=== PATIENT | male | born 1995 | race Caucasian/White ===

== ENCOUNTER 2023-03-10 12:37 | Emergency (ER) | payer MEDICAID, OTHER ==
[~2023-03-10] VITALS: Ht 170.2 cm; Wt 66.4 kg
[2023-03-10] MEDS ORDERED: LORazepam 0.5 MG TAB PO ONE (13:15)
[2023-03-10] MEDS ORDERED: ONDANSETRON ODT 4 MG TAB PO ONE (13:15)
[2023-03-10 13:32] LABS: Basophils # (auto) 0 10 ^3/uL (0-0.2); Basophils % (auto) 0.4 % (0.0-2.0); Eosinophils # (auto) 0 10 ^3/uL (0-0.8); Eosinophils % (auto) 0.4 % (0.0-7.0); Hematocrit 47.2 % (41.0-53.0); Hemoglobin 16.6 g/dL (13.5-17.5); Lymphocytes # (auto) 0.6 10 ^3/uL (0.4-5.4); Lymphocytes % (auto) 5.3 % (10.0-50.0); Mean Corpuscular Hgb Conc. 35.1 g/dL (32.0-36.0); Mean Corpuscular Volume 88.3 fL (80.0-100.0); Monocytes # (auto) 0.5 10 ^3/uL (0-1.3); Monocytes % (auto) 4.1 % (0.0-12.0); Neutrophils # (auto) 9.9 10 ^3/uL (1.6-8.6); Neutrophils % (auto) 89.8 % (37.0-80.0); Red Blood Cells 5.35 10^6/uL (4.5-5.90); Red Cell Distribution Width 13.5 % (11.8-14.3); White Blood Cell 11.1 10^3/uL (4.4-10.8)
[2023-03-10 13:47] LABS: Alanine Aminotransferase 31 U/L (7-40); Albumin 5.3 g/dL (3.2-4.8); Alkaline Phosphatase 88 U/L (46-116); Anion Gap 10 (5-15); Aspartate Aminotransferase 16 U/L (13-40); BUN/Creatinine Ratio 11.2 (10.0-20.0); Bilirubin, Total 1.2 mg/dL (0.2-1.0); Blood Urea Nitrogen 12 mg/dL (9-23); Calcium 10.1 mg/dL (8.7-10.4); Carbon Dioxide 25 mmol/L (20-30); Chloride 103 mmol/L (98-107); Glucose 111 mg/dL (74-106); Lipase 39 U/L (12-53); Potassium 3.8 mmol/L (3.5-5.1); Sodium 138 mmol/L (136-145)
[2023-03-10 15:17] LABS: Urine Bacteria NONE SEEN /hpf (None Seen); Urine Blood Negative /uL (Negative); Urine Clarity Clear (Clear); Urine Color Yellow (Yellow); Urine Mucus FEW (None Seen); Urine Protein, UAD Negative (Negative); Urine Specific Gravity 1.026 (1.001-1.035); Urine Urobilinogen Normal (Negative); Urine WBC <1 /hpf (0 - 3); Urine pH 6.5 (5.0-8.0)
[2023-03-10] MEDS ORDERED: LORA-655 PO (15:24)
[2023-03-10] MEDS ORDERED: ZOFR4T PO (15:24)
[2023-03-10 17:21] VITALS: BP 110/66; PULSE 63; RESP 14; TEMP 97.8; O2SAT 96
== END 2023-03-10 17:24 | disposition home or self-care (01) ==
LOC: ER 12:37
DX: F12.188 Cannabis abuse with other cannabis-induced disorder (principal); R10.84 Generalized abdominal pain
CPT/HCPCS: 36415; 80053; 81001; 83690; 85025; 99283; Q0162

== ENCOUNTER 2023-09-25 03:12 | Emergency (ER) | payer SELFPAY ==
[~2023-09-25] VITALS: Ht 170.2 cm; Wt 66.4 kg
[~2023-09-25 03:12] MED LIST: LORA-655 PO; ZOFR4T PO
[2023-09-25 04:00] VITALS: BP 121/83; PULSE 68; RESP 15; TEMP 97.3; O2SAT 99
[2023-09-25] MEDS ORDERED: LORA-1123 PO (04:33)
[2023-09-25] MEDS: LORazepam 2MG/ML-1ML VIAL IM ONE (04:56)
== END 2023-09-25 05:51 | disposition home or self-care (01) ==
LOC: ER 03:12
DX: F41.9 Anxiety disorder, unspecified (principal); F12.90 Cannabis use, unspecified, uncomplicated; Z79.899 Other long term (current) drug therapy
CPT/HCPCS: 96372; 99283; J2060